=== PATIENT | female | born 1950 | race Caucasian/White ===

== ENCOUNTER 2016-09-13 13:37 | Inpatient (IN) | payer MEDICARE, OTHER ==
[~2016-09-13] VITALS: Ht 172.7 cm; Wt 101.0 kg
[2016-09-13] MEDS ORDERED: NITROGLYCERIN SUBLINGUAL 0.4 MG (NITROQUICK) TABLET SL PRN (13:50)
[2016-09-13] MEDS ORDERED: ASPIRIN 81 MG CHEW (CHILDREN'S ASA) PO ONE (13:50)
[2016-09-13] MEDS ORDERED: morphine INJ 4 MG/ML 1 ML SYRINGE IV PRN (13:50)
[2016-09-13] MEDS ORDERED: SODIUM CHLORIDE FLUSH 3 ML SYR IV PRN (13:50)
[2016-09-13] MEDS ORDERED: SODIUM CHLORIDE 250 ML IV PRN (13:50)
[2016-09-13 13:59] LABS: BASOPHILS % (AUTO) 1 % (0-2); EOSINOPHILS # (AUTO) 1.5 10^3uL; EOSINOPHILS % (AUTO) 10 % (0-4); LYMPHOCYTES # (AUTO) 1.7 X10^3; MEAN CORPUSCULAR HEMOGLOBIN 28.3 PG (26.0-34.0); MEAN CORPUSCULAR HGB CONC 34.6 g/dL (31.0-37.0); MEAN CORPUSCULAR VOLUME 82 FL (80-100); MEAN PLATELET VOLUME 9.9 FL (6.0-9.5); MONOCYTES # (AUTO) 1.1 X10^3; MONOCYTES % (AUTO) 7 % (3-11); NEUTROPHILS # (AUTO) 10.5 X10^3; NEUTROPHILS % (AUTO) 71 % (51-67); PLATELET COUNT 440 10^3uL (150-450); WHITE BLOOD COUNT 14.83 10^3uL (4.0-11.0)
[2016-09-13] MEDS: SODIUM CHLORIDE FLUSH 10 ML SYR IV PRN ×2 (14:00→20:22)
[2016-09-13 14:09] LABS: ALBUMIN 4.6 g/dL (3.4-5.0); ALKALINE PHOSPHATASE 133 U/L (38-126); ANION GAP 18.1 MEQ/L (3-15); BUN/CREATININE RATIO 13 (10-20); CALCULATED IONIZED CALCIUM 3.8 mg/dL (3.8-4.6); CREATINE KINASE 49 U/L (30-135); TOTAL PROTEIN 9.2 g/dL (6.4-8.5)
[2016-09-13] MEDS ORDERED: ALBUTEROL 0.083% NEB SOLUTION 2.5 MG/3 ML VIAL INH ONE (14:10)
--- NOTE | 2016-09-13 14:19 | NUR ---
Patient reports nitroglycerin causing light-headedness. Denies change in chest heaviness.
[2016-09-13] MEDS ORDERED: AZITHROMYCIN 250 MG TAB (ZITHROMAX) PO ONE (15:10)
[2016-09-13] MEDS ORDERED: predniSONE 20 MG (DELTASONE) TABLET PO ONE (15:10)
[2016-09-13] MEDS ORDERED: ALBUTEROL/IPRATROPIUM 3MG-0.5MG/3ML (DUONEB) NEB VIAL INH ONE (15:10)
[2016-09-13 15:46] LABS: INFLUENZA VIRUS TYPE A ANTIBOD Negative (NEGATIVE); INFLUENZA VIRUS TYPE B ANTIBOD Negative (NEGATIVE)
--- NOTE | 2016-09-13 16:15 | NUR ---
Patient unable to maintain O2 sat above 90% on room air. Dr. Lunsford requests Dr. Patterson to call about possible admission.
[2016-09-13] MEDS ORDERED: PROMETHAZINE/CODEINE SYRUP 6.25MG-10MG/5ML (PHENERGAN W/COD) UDC PO ONE (16:25)
[2016-09-13 16:40] VITALS: BP 156/100
--- NOTE | 2016-09-13 16:40 | NUR ---
Patient admitted to room 305 per cart from ER. Able to walk with stand by assist to the scale and then to the bathroom. O2 sat. on room air was 89-90%. Applied 1 liter NC and sat. recovered to 91-92%. Patient attempts to clear her throat frequently and reports the feeling of excess mucous.
[2016-09-13 16:49] VITALS: BP 156/100
[2016-09-13] MEDS ORDERED: IBUPROFEN 600 MG (MOTRIN) TAB PO PRN (19:15)
[2016-09-13] MEDS ORDERED: ACETAMINOPHEN 325 MG TAB (TYLENOL) PO PRN (19:15)
[2016-09-13] MEDS ORDERED: POTASSIUM CHLORIDE ER 20 MEQ TABLET PO ONE (19:15)
[2016-09-13] MEDS ORDERED: PROMETHAZINE/CODEINE SYRUP 6.25MG-10MG/5ML (PHENERGAN W/COD) UDC PO PRN (19:15)
[2016-09-13] MEDS ORDERED: ALBUTEROL 0.083% NEB SOLUTION 2.5 MG/3 ML VIAL INH PRN (19:25)
[2016-09-13 19:37] VITALS: BP 111/63
[2016-09-13] MEDS: ALBUTEROL/IPRATROPIUM 3MG-0.5MG/3ML (DUONEB) NEB VIAL INH SCH (19:40)
--- NOTE | 2016-09-13 19:42 | NUR ---
Patient was able to eat supper without significant shortness of air. She remains on 1 liter NC with sats. in the the low 90's. Ambulates the room safely even with O2 tubing. Attempts to clear her throat frequently and comments about the feeling of extra secretions.
[2016-09-13 20:18] VITALS: BP 111/63
--- NOTE | 2016-09-13 20:30 | NUR ---
Patient resting well. Is alert and oriented Has intermittent non-productive cough. Clears throat frequently. Oxygen remains on at 1 liter per nasal cannula. Patient is up ad klaus. Pleasant. No concerns at this time.
[2016-09-13] MEDS ORDERED: ARFORMOTEROL NEB SOLUTION (BROVANA) 15 MCG/2 ML VIAL IH SCH (21:00)
[2016-09-13] MEDS ORDERED: BUDESONIDE NEBS 0.5 MG/2ML (PULMICORT) AMP INH SCH (21:00)
--- NOTE | 2016-09-13 21:00 | NUR ---
Patient rests well. IV patent getting 500 cc bolus as ordered.
[2016-09-13] MEDS ORDERED: ATORVASTATIN 10 MG (LIPITOR) TABLET PO SCH (21:10)
--- NOTE | 2016-09-14 | NUR ---
Ambulated to the bathroom. Voids without difficulty. Denies any SOA or difficulty breathing. Continuous pulse OX on. SP02 remains above 90%. Oxygen remains on at 1 liter. No concerns voiced. Call light within reach.
[2016-09-14 00:11] VITALS: BP 130/74
[2016-09-14] MEDS: ALBUTEROL/IPRATROPIUM 3MG-0.5MG/3ML (DUONEB) NEB VIAL INH SCH ×3 (01:48→14:01)
[2016-09-14] MEDS: FAMOTIDINE 20 MG (PEPCID) TABLET PO SCH ×2 (02:26→09:41)
[2016-09-14] MEDS: guaiFENesin ER 600 MG (MUCINEX) TAB PO SCH ×2 (02:26→09:41)
[2016-09-14 06:01] VITALS: BP 122/69
[2016-09-14 06:17] LABS: MEAN CORPUSCULAR HEMOGLOBIN 28.5 PG (26.0-34.0); MEAN CORPUSCULAR HGB CONC 34.6 g/dL (31.0-37.0); MEAN CORPUSCULAR VOLUME 83 FL (80-100); MEAN PLATELET VOLUME 9.9 FL (6.0-9.5); PLATELET COUNT 336 10^3uL (150-450); WHITE BLOOD COUNT 11.26 10^3uL (4.0-11.0)
--- NOTE | 2016-09-14 06:30 | NUR ---
Patient did not rest well. Stated that she had a steroid in ER and does not sleep well after being given that medication. Saturation remains above 90%. Oxygen remains on at 1 liter. No respiratory distress tonight. Patient compliant with cares. Call light within reach.
[2016-09-14 06:32] LABS: BAND NEUTROPHILS % 0 % (0-6); EOSINOPHILS % 0 % (0-4); LYMPHOCYTES # 0.5 #; MONOCYTES # 0.7 #; MONOCYTES % 6 % (3-11); RBC MORPH NORMAL (NORMAL); SEGMENTED NEUTROPHILS % 90 % (51-67); TOTAL CELLS COUNTED 100
[2016-09-14 06:41] LABS: ALBUMIN 3.6 g/dL (3.4-5.0); ANION GAP 16.8 MEQ/L (3-15); CALCULATED IONIZED CALCIUM 3.9 mg/dL (3.8-4.6); TOTAL PROTEIN 7.4 g/dL (6.4-8.5)
[2016-09-14] MEDS ORDERED: PANTOPRAZOLE 40 MG (PROTONIX) TAB PO SCH (07:00)
[2016-09-14 07:37] VITALS: BP 144/92
--- NOTE | 2016-09-14 08:16 | NUR ---
NUTRITION ASSESSMENT Level 1 Patient: Susy Vasquez Age/Sex: 66/F Date Screened: 09-14-16 Weight: 222.2#/101 kg Height: 68 inches Primary Diagnosis: SIRS, acute hypoxic respiratory failure Diet Order: regular Relevant labs: glucose 133, magnesium 1.8 Food allergies: N Nutrition Assessment Criteria Age over 80: N Body Mass Index (BMI) under 19: N Admission Screening Indicates Risk? N Moderate/High Risk Diagnosis: 3 points TPN or PPN: N NPO or clear liquid diet: N Serum Glucose <70 or >180: N Hgb A1c >6.7: N/A Total: 3 points Risk Screen: __ Patient at low nutritional risk based on available data; reevaluate in 5-7 days _X_ Patient at moderate nutritional risk based on available data; reevaluate in 3-5 days __ Patient at high nutritional risk; complete Nutrition Assessment within 48 hours of admission. Comments: Patient had reported on admission a 35 lb. weight loss over the past year, but compared with 2 months ago, she is actually up 9 lb. She had a MBS study done a year ago to rule out possible dysphagia, but her swallow was WNL. Pt. denies GI concerns and has good appetite, eating 75%. Will reassess as documented above.
[2016-09-14] MEDS ORDERED: INDAPAMIDE 1.25 MG PO SCH (09:00)
[2016-09-14] MEDS ORDERED: SPIRONOLACTONE 25 MG (ALDACTONE) TABLET PO SCH (09:00)
[2016-09-14] MEDS ORDERED: AZITHROMYCIN 250 MG TAB (ZITHROMAX) PO SCH (09:00)
[2016-09-14] MEDS ORDERED: amLODIPine 5 MG (NORVASC) TAB PO SCH (09:00)
[2016-09-14 11:32] VITALS: BP 139/79
--- NOTE | 2016-09-14 12:00 | NUR ---
Patient has been on room air for a couple of hours and sats. have remained in the 90's.
--- NOTE | 2016-09-14 14:40 | NUR ---
Gave the patient discharge instructions and informed her scripts have been electronically sent. Removed SL- catheter tip intact. Patient demonstrated verbal understanding of the instructions.
--- NOTE | 2016-09-14 15:03 | NUR ---
Patient dismissed per wheelchair accompanied by a REPAIR OPERATOR.
== END 2016-09-14 15:03 | disposition home or self-care (01) | DRG 189 ==
LOC: EDUNIT# 13:37 → ED 13:38 → MED/SURG 16:26
PROVIDERS: ADMIT Family Medicine; ATTEND Family Medicine
DX: J96.01 Acute respiratory failure with hypoxia (principal); J44.1 Chronic obstructive pulmonary disease with (acute) exacerbation; E87.1 Hypo-osmolality and hyponatremia; J06.9 Acute upper respiratory infection, unspecified; I10 Essential (primary) hypertension; E78.5 Hyperlipidemia, unspecified; K21.9 Gastro-esophageal reflux disease without esophagitis
CPT/HCPCS: 36415; 71010; 71020; 80053; 82550; 82553; 83735; 83880; 84484; 85025; 85610; 85730; 87486; 87502; 87581; 87633; 87798; 93005; 93010; 94640; 94762; 99285

== ENCOUNTER → 2016-09-13 | Outpatient (CLI) | payer MEDICARE, OTHER ==
[2016-09-13 13:42] VITALS: BP 161/109
== END ==
LOC: MHUC 13:18
PROVIDERS: ATTEND Physician Assistant
DX: R07.9 Chest pain, unspecified (principal)
CPT/HCPCS: 99211

== ENCOUNTER 2016-10-11 08:39 | Day surgery (SDC) | payer MEDICARE, OTHER ==
[~2016-10-11] VITALS: Ht 172.7 cm; Wt 98.2 kg
[~2016-10-11 08:39] MED LIST: ACETAMINOPHEN 500 MG TAB (TYLENOL) PO PRN; CHONDROITIN/HYALURONATE (DISCOVISC) 1 ML SYR IO ONE; PHENYLEPHRINE/KETOROLAC 4 ML VIAL IO ONE; SODIUM CHLORIDE FLUSH 3 ML SYR IV PRN; TETRACAINE 0.5% OPHTHALMIC SOLUTION 4 ML BTL ONE; diphenhydrAMINE 50 MG/ML INJ (BENADRYL) IV PRN
[2016-10-11 08:53] VITALS: BP 137/58
[2016-10-11] MEDS: LIDOCAINE 3.5% OPHTH GEL (AKTEN) 1 ML BTL OS SCH ×4 (09:17→09:55)
[2016-10-11] MEDS: CATARACT PRE-OP EYE DROPS 0.5ML SYRINGE OS SCH ×3 (09:32→09:55)
[2016-10-11] MEDS: HOME MEDICATION OS SCH ×3 (09:32→09:55)
[2016-10-11] MEDS ORDERED: MIDAZOLAM 2 MG/2 ML (VERSED) VIAL ONE ×2 (10:00→10:35)
[2016-10-11] MEDS ORDERED: LIDOCAINE 2% BOLUS 100 MG/5 ML (XYLOCAINE) SYRINGE ONE ×2 (10:42)
[2016-10-11] MEDS ORDERED: ALFENTANIL 1,000 MCG/2 ML AMP IV ONE (10:45)
[2016-10-11 10:55] VITALS: BP 100/70
[2016-10-11 11:18] VITALS: BP 116/74
== END 2016-10-11 11:20 | disposition home or self-care (01) ==
LOC: ASC 08:39
PROVIDERS: ATTEND Ophthalmology
DX: H25.12 Age-related nuclear cataract, left eye (principal); I10 Essential (primary) hypertension; E78.5 Hyperlipidemia, unspecified; R00.0 Tachycardia, unspecified; J45.909 Unspecified asthma, uncomplicated
CPT/HCPCS: 36415; 66984; 84132; A9270; C9447; J2250; V2632

== ENCOUNTER 2016-10-15 14:14 | Emergency (ER) | payer MEDICARE, OTHER ==
[~2016-10-15] VITALS: Ht 172.7 cm; Wt 100.3 kg
[2016-10-15] MEDS ORDERED: methylPREDNISolone 125 MG (Solu-MEDROL) VIAL IV ONE (14:50)
[2016-10-15] MEDS ORDERED: ALBUTEROL/IPRATROPIUM 3MG-0.5MG/3ML (DUONEB) NEB VIAL INH ONE (14:50)
[2016-10-15] MEDS ORDERED: SODIUM CHLORIDE FLUSH 10 ML SYR IV PRN (14:50)
[2016-10-15] MEDS ORDERED: SODIUM CHLORIDE FLUSH 3 ML SYR IV ONE (15:00)
[2016-10-15 15:15] LABS: BASOPHILS % (AUTO) 0 % (0-2); EOSINOPHILS # (AUTO) 0.7 10^3uL; EOSINOPHILS % (AUTO) 6 % (0-4); LYMPHOCYTES # (AUTO) 0.7 X10^3; MEAN CORPUSCULAR HGB CONC 35.4 g/dL (31.0-37.0); MEAN CORPUSCULAR VOLUME 82 FL (80-100); MEAN PLATELET VOLUME 9.6 FL (6.0-9.5); MONOCYTES # (AUTO) 0.6 X10^3; MONOCYTES % (AUTO) 5 % (3-11); NEUTROPHILS # (AUTO) 9.3 X10^3; NEUTROPHILS % (AUTO) 82 % (51-67); PLATELET COUNT 327 10^3uL (150-450); WHITE BLOOD COUNT 11.34 10^3uL (4.0-11.0)
[2016-10-15 15:27] LABS: ALBUMIN 4.1 g/dL (3.4-5.0); ANION GAP 14.6 MEQ/L (3-15); CALCULATED IONIZED CALCIUM 3.8 mg/dL (3.8-4.6); TOTAL PROTEIN 8.1 g/dL (6.4-8.5)
[2016-10-15 15:53] LABS: BILIRUBIN,URINE Negative (Negative); CLARITY,URINE Clear; COLOR,URINE Yellow; GLUCOSE, URINE (UA) Negative (Negative); LEUKOCYTE ESTERASE ,URINE Negative (Negative); UROBILINOGEN,URINE 0.2 mg/dL (0.2-1.0)
[2016-10-15 18:55] VITALS: BP 135/89
== END 2016-10-15 18:49 | disposition home or self-care (01) ==
LOC: ED 14:15
DX: J41.0 Simple chronic bronchitis (principal)
CPT/HCPCS: 36415; 74022; 80053; 81003; 85025; 86140; 87070; 87205; 87486; 87581; 87633; 87798; 94640; 96361; 96374; 99284; J2930; J7030; 99283